=== PATIENT | male | born 1950 | race Two or more races ===

== ENCOUNTER 2017-06-22 15:09 | Emergency (ER) | payer SELFPAY ==
[~2017-06-22] VITALS: Ht 167.6 cm; Wt 99.8 kg
[2017-06-22 15:28] VITALS: BP 155/89
[2017-06-22 16:37] LABS: Basophils # (auto) 0 uL; Basophils % (auto) 0.4 % (0.0-2.0); Eosinophils # (auto) 0 uL; Eosinophils % (auto) 0.3 % (0.0-7.0); Hematocrit 45.3 % (41.0-53.0); Hemoglobin 15.2 g/dL (13.5-17.5); Lymphocytes # (auto) 2.1 uL; Lymphocytes % (auto) 24.9 % (10.0-50.0); Mean Corpuscular Hemoglobin 30.9 pg (28.0-32.0); Mean Corpuscular Hgb Conc. 33.5 g/dL (32.0-36.0); Mean Corpuscular Volume 92.2 fL (80.0-100.0); Mean Platelet Volume 7.8 fL (6.9-10.8); Monocytes # (auto) 0.7 uL; Monocytes % (auto) 7.9 % (0.0-12.0); Neutrophils # (auto) 5.5 uL; Neutrophils % (auto) 66.5 % (37.0-80.0); Nucleated Red Blood Cells % 0.1 %; Platelet Count (auto) 247 10^3/uL (140-450); Red Cell Distribution Width 14.7 % (11.8-14.3); White Blood Cell 8.2 10^3/uL (4.4-10.8)
[2017-06-22 16:59] LABS: Albumin 3.7 g/dL (3.4-5.0); BUN/Creatinine Ratio 14.3; Bilirubin, Total 0.3 mg/dL (0.2-1.0); Calcium 8.2 mg/dL (8.5-10.1); Potassium 3.7 mmol/L (3.5-5.1); Total Protein 7.6 g/dL (6.4-8.2)
== END 2017-06-22 22:10 | disposition left against medical advice (07) ==
LOC: ER 15:21
DX: R07.9 Chest pain, unspecified (principal); F10.10 Alcohol abuse, uncomplicated; Z53.21 Procedure and treatment not carried out due to patient leaving prior to being seen by health care provider
CPT/HCPCS: 36415; 71010; 80053; 80320; 85025; 93005

== ENCOUNTER 2017-12-28 13:55 | Emergency (ER) | payer OTHER ==
[~2017-12-28] VITALS: Ht 162.6 cm; Wt 95.3 kg
[2017-12-28 14:11] VITALS: BP 149/90
== END 2017-12-28 14:34 | disposition home or self-care (01) ==
LOC: ER 13:55 → EDBD 13:55 → ER 14:34
DX: F10.129 Alcohol abuse with intoxication, unspecified (principal); E11.9 Type 2 diabetes mellitus without complications; E78.5 Hyperlipidemia, unspecified; I10 Essential (primary) hypertension; Z90.49 Acquired absence of other specified parts of digestive tract; Z88.1 Allergy status to other antibiotic agents

== ENCOUNTER → 2022-03-04 | Outpatient (CLI) | payer OTHER | END | disposition home or self-care (01) | LOC: Rad HDHVI 12:42 | PROVIDERS: ATTEND Internal Medicine | DX: I08.0 Rheumatic disorders of both mitral and aortic valves (principal); R07.89 Other chest pain; I10 Essential (primary) hypertension | CPT/HCPCS: 93306 ==

== ENCOUNTER → 2022-03-10 | Outpatient (CLI) | payer OTHER ==
[~2022-03-10] VITALS: Ht 162.6 cm; Wt 83.9 kg
[~2022-03-10] MED LIST: ATOR40TA52 PO; LOSA100T33 PO; METF-371 PO; NAP500T PO; TAMS1CAP25 PO
== END | disposition home or self-care (01) ==
LOC: Rad HDHVI 09:22
PROVIDERS: ATTEND Internal Medicine
DX: I10 Essential (primary) hypertension (principal); E78.5 Hyperlipidemia, unspecified; E11.9 Type 2 diabetes mellitus without complications; R07.9 Chest pain, unspecified; R63.8 Other symptoms and signs concerning food and fluid intake
CPT/HCPCS: 78452; 82962; 93017; 96374; A9500

== ENCOUNTER 2022-04-04 11:00 | Outpatient (CLI) | payer OTHER ==
[~2022-04-04] VITALS: Ht 162.6 cm; Wt 83.9 kg
[2022-04-04] MEDS ORDERED: METF-371 PO (11:48)
[2022-04-04] MEDS ORDERED: ATOR40TA52 PO (11:48)
[2022-04-04] MEDS ORDERED: NAP500T PO (11:48)
[2022-04-04] MEDS ORDERED: TAMS1CAP25 PO (11:48)
[2022-04-04] MEDS ORDERED: LOSA100T33 PO (11:48)
== END 2022-04-04 11:28 | disposition home or self-care (01) ==
LOC: LAB 11:00 → EDSTATUS 05-11 07:17
PROVIDERS: ATTEND Internal Medicine
DX: U07.1 COVID-19 (principal)

== ENCOUNTER → 2022-04-04 | Outpatient (CLI) | payer OTHER ==
[2022-04-04 09:35] VITALS: BP 139/67
[2022-04-04 09:54] VITALS: BP 138/67
[2022-04-04 11:31] LABS: Basophils # (auto) 0.1 10 ^3/uL (0-0.2); Basophils % (auto) 1.8 % (0.0-2.0); Eosinophils # (auto) 0.5 10 ^3/uL (0-0.8); Eosinophils % (auto) 6.8 % (0.0-7.0); Hematocrit 44.8 % (41.0-53.0); Hemoglobin 14.3 g/dL (13.5-17.5); Lymphocytes # (auto) 1.6 10 ^3/uL (0.4-5.4); Lymphocytes % (auto) 20.7 % (10.0-50.0); Mean Corpuscular Hemoglobin 29.8 pg (28.0-32.0); Mean Corpuscular Hgb Conc. 31.9 g/dL (32.0-36.0); Mean Corpuscular Volume 93.4 fL (80.0-100.0); Monocytes # (auto) 0.6 10 ^3/uL (0-1.3); Monocytes % (auto) 7.4 % (0.0-12.0); Neutrophils # (auto) 4.9 10 ^3/uL (1.6-8.6); Neutrophils % (auto) 63.3 % (37.0-80.0); Red Cell Distribution Width 14.2 % (11.8-14.3); White Blood Cell 7.8 10^3/uL (4.4-10.8)
[2022-04-04 11:58] LABS: INR 0.95 (0.9-1.15); Partial Thromboplastin Time 29.6 sec (24.6-33.4)
[2022-04-04 12:29] LABS: BUN/Creatinine Ratio 21.7; Calcium 9.5 mg/dL (8.5-10.1)
== END | disposition home or self-care (01) ==
LOC: Rad HDHVI 08:57
PROVIDERS: ATTEND Internal Medicine
DX: M79.602 Pain in left arm (principal); R07.9 Chest pain, unspecified; I70.0 Atherosclerosis of aorta; M47.814 Spondylosis without myelopathy or radiculopathy, thoracic region; Z01.812 Encounter for preprocedural laboratory examination
CPT/HCPCS: 36415; 71046; 80048; 85025; 85610; 85730; 93005; G0463